=== PATIENT | male | born 1985 | race African-American/Black ===

== ENCOUNTER 2017-10-21 03:14 | Emergency (ER) | payer OTHER ==
[~2017-10-21] VITALS: Ht 172.7 cm; Wt 70.5 kg
[2017-10-21] MEDS ORDERED: ALBUTEROL SULFATE HFA 90 MCG/PUFF 8 GM INHALER IH ONE (04:00)
[2017-10-21 04:30] VITALS: BP 121/73
== END 2017-10-21 04:43 | disposition home or self-care (01) ==
LOC: EMS 03:18
DX: J98.01 Acute bronchospasm (principal); X03.0XXA Exposure to flames in controlled fire, not in building or structure, initial encounter; Y93.89 Activity, other specified; Y92.89 Other specified places as the place of occurrence of the external cause; Y99.8 Other external cause status
CPT/HCPCS: 94640; 99283; J3535